=== PATIENT | female | born 1950 ===

== ENCOUNTER 2022-07-05 12:33 | Outpatient (CLI) | payer MEDICARE ==
--- NOTE | 2022-07-06 08:12 | Ultrasound Report ---
PROCEDURE: Carotid Doppler Complete INDICATIONS: CAROTID ARTERY OCCLUSION TECHNIQUE: Color and pulse Doppler interrogation was performed of both carotid systems, with image documentation and velocity measurements. COMPARISON: None. FINDINGS: Right side: Brachial blood pressure: 150/69 mm Hg. Common carotid artery peak systolic velocity: 65 cm/sec. Internal carotid artery peak systolic velocity: 78 cm/sec. Internal carotid artery end diastolic velocity: 27 cm/sec. External carotid artery peak systolic velocity: 80 cm/sec. ICA/CCA peak systolic ratio: 1.2 . Valenzuela scale imaging description: Minimal plaque Percent internal carotid artery stenosis: Less than 50% . Vertebral artery: Flow direction is antegrade. Left side: Brachial blood pressure: 147/70 mm Hg. Common carotid artery peak systolic velocity: 78 cm/sec. Internal carotid artery peak systolic velocity: 69 cm/sec. Internal carotid artery end diastolic velocity: 27 cm/sec. External carotid artery peak systolic velocity: 67 cm/sec. ICA/CCA peak systolic ratio: 0.9 . Valenzuela scale imaging description: Minimal plaque Percent internal carotid artery stenosis: Less than 50% . Vertebral artery: Flow direction is antegrade. IMPRESSION: Peak systolic velocities are consistent with less than 50% stenosis of the internal carotid arteries bilaterally. Reviewed by: Wil Plummer MD on 07/06/2022 8:11 AM PDT Approved by: Wil Plummer MD on 07/06/2022 8:11 AM PDT Station ID: [id number]
== END 2022-07-05 12:34 | disposition home or self-care (01) ==
LOC: DI 12:33
PROVIDERS: ATTEND Nurse Practitioner Family
DX: I65.23 Occlusion and stenosis of bilateral carotid arteries (principal)
CPT/HCPCS: 93880

== ENCOUNTER 2022-07-05 12:36 | Outpatient (CLI) | payer MEDICARE ==
--- NOTE | 2022-07-25 11:51 | Mammography Report ---
BILATERAL DIGITAL SCREENING MAMMOGRAM 3D/2D: 07/05/2022 CLINICAL: Routine screening. Additional films were requested but not obtained. Both breasts are heterogeneously dense, which may obscure small masses (category c / 51-75% glandula r tissue). No significant masses, calcifications, or other findings are seen in either breast. IMPRESSION: NEGATIVE There is no mammographic evidence of malignancy. A 1 year screening mammogram is recommended. Based on the Tyrer Cuzick model (a risk assessment model) the patients lifetime risk is 5.0% and her 10 year risk is 3.2%. According to the ACR, ACS, and NCCN guidelines, an annual breast MRI exam maria eugenia g with mammogram is recommended if the patients lifetime risk is 20% or greater. This exam was interpreted at Station ID: [id number]. NOTE: For mammograms, a report in lay terms will be sent to the patient. Approximately 15% of breast malignancies will not be visualized mammographically. In the management of a palpable breast mass, a negative mammogram must not discourage biopsy of a clinically suspicious lesion. Electronically Signed By: Wil bee/estrella:07/24/2022 10:04:52 ACR BI-RADS Category 1: Negative 3341F PARENCHYMAL PATTERN: (D) - The breast(s) demonstrate(s) heterogeneously dense fibroglandular yee chao. BI-RADS CATEGORY: (1) - 1 RECOMMENDATION: (ANNUAL) - Recommend routine annual screening mammography. [id number] 1 year screening LATERALITY: (B)
== END 2022-07-05 12:37 | disposition home or self-care (01) ==
LOC: DI 12:36
DX: Z12.31 Encounter for screening mammogram for malignant neoplasm of breast (principal)

== ENCOUNTER 2022-07-25 08:41 | Outpatient (CLI) | payer MEDICARE ==
--- NOTE | 2022-07-25 12:39 | Ultrasound Report ---
PROCEDURE: Head or Neck Soft Tissue INDICATIONS: ABD PAIN, INCOMPLETE BLADDER EMPTYING,THYROID NODULES TECHNIQUE: Real-time scanning was performed of the thyroid gland, with image documentation. COMPARISON: None FINDINGS: Right: Thyroid lobe measures 4.4 x 1.9 x 1.6 cm, and is homogeneous in echotexture. Left: Thyroid lobe measures 3.8 x 2.7 x 1.5 cm, and is homogenous in echotexture. Isthmus: 0.6 cm thick. Nodule number: Right #1 Location: Right mid thyroid Size: 1.1 x 0.9 x 1.1 cm. Composition: Predominantly solid Echogenicity: Hypoechoic Shape: wider than tall. Margins: Smooth Echogenic foci: None Total points: 4 ACR TI-RADS category: Moderately suspicious Two small peripherally calcified anechoic cysts (right #2 and right #3) are seen in the superior late ral thyroid measuring 6 mm and 4 mm in diameter respectively are not suspicious. Additional benign 1. 2 cm anechoic cyst is seen in the left thyroid (left #1). Nodule number: Isthmus Location: Isthmus Size: 0.7 x 0.7 x 0.6 cm. Composition: Solid Echogenicity: Hypoechoic Shape: wider than tall. Margins: Smooth Echogenic foci: None Total points: 4 ACR TI-RADS category: Moderately suspicious IMPRESSION: Multiple thyroid nodules and cysts as described in the body the report. Recommend follow -up of the right mid thyroid nodule based on guidelines provided below. ACR TI-RADS definitions and recommendations: TI-RADS 1 (benign): 0 points. FNA not needed. TI-RADS 2 (not suspicious): 2 points. FNA not needed. TI-RADS 3 (mildly suspicious): 3 points. "FNA if 2.5 cm or larger, follow up if 1.5 cm or larger (at 1, 3, and 5 years). TI-RADS 4 (moderately suspicious): 4-6 points. "FNA if 1.5 cm or larger, follow up if 1 cm or larger (at 1, 2, 3, and 5 years). TI-RADS 5 (highly suspicious): 7 points or more. "FNA if 1 cm or larger, follow up if 0.5 cm or larger (every year for 5 years). Reviewed by: Wil Garcia MD on 07/25/2022 12:38 PM PDT Approved by: Wil Garcia MD on 07/25/2022 12:38 PM PDT Station ID: [id number]
--- NOTE | 2022-07-25 15:44 | Ultrasound Report ---
PROCEDURE: Abdomen Complete INDICATIONS: ABD PAIN, INCOMPLETE BLADDER EMPTYING,THYROID NODU TECHNIQUE: Real-time scanning was performed of the abdominal and retroperitoneal organs, with image documentatio n. COMPARISON: None. FINDINGS: Liver: Liver length of 16.4 cm. Echogenic. Gallbladder: Surgically absent. Biliary ducts: Intrahepatic bile ducts are non-dilated. Extrahepatic bile duct caliber measures 7 m m. Normal is 6-7 mm or less in diameter, or 10 mm or less post-cholecystectomy. Pancreas: Visualized portions of the pancreas are sonographically normal. Spleen: Spleen is normal in size and homogeneous in echotexture. Kidneys: Kidneys are normal in size and echotexture. Right kidney measures 9.8 cm long; left kidney measures 11.0 cm long. No hydronephrosis or nephrolithiasis. Aorta: Visualized aorta is normal in caliber at less than 3 cm. Iliacs: Proximal common iliac arteries are normal in caliber at less than 2.5 cm. IVC: Intrahepatic inferior vena cava is patent. Miscellaneous: No free abdominal fluid. IMPRESSION: 1. Prior cholecystectomy. No biliary ductal dilation demonstrated. 2. The liver is echogenic, a nonspecific finding commonly seen in the setting of steatosis. 3. No hydronephrosis or evidence of nephrolithiasis. Reviewed by: Wil Plummer MD on 07/25/2022 3:43 PM PDT Approved by: Wil Plummer MD on 07/25/2022 3:43 PM PDT Station ID: [id number]
--- NOTE | 2022-07-26 09:30 | Ultrasound Report ---
PROCEDURE: Bladder INDICATIONS: ABD PAIN, INCOMPLETE BLADDER EMPTYING,THYROID NODU TECHNIQUE: Real-time scanning was performed of the bladder, with image documentation. COMPARISON: None FINDINGS: Bladder: Pre-void bladder volume is 37 mL. Post-void residual is zero mL. Pre-void images demonstr ate no intraluminal masses or stones. On pre-void images, the right ureteral jet is noted with color Doppler interrogation. (Of note, ureteral jets may not be detectable in up to 25% of cases due to i nsufficient differences in specific gravity between ureteral and bladder urine). Miscellaneous: No free pelvic fluid. IMPRESSION: Normal study. Reviewed by: Sid Rodríguez MD on 07/26/2022 9:29 AM PDT Approved by: iSd Rodríguez MD on 07/26/2022 9:29 AM PDT Station ID: [id number]
== END 2022-07-25 08:42 | disposition home or self-care (01) ==
LOC: DI 08:41
PROVIDERS: ATTEND Physician Assistant
DX: E04.1 Nontoxic single thyroid nodule (principal); R10.30 Lower abdominal pain, unspecified; R39.14 Feeling of incomplete bladder emptying; Z90.49 Acquired absence of other specified parts of digestive tract

== ENCOUNTER 2022-12-20 21:39 | Outpatient (CLI) | payer MEDICARE ==
--- NOTE | 2022-12-21 15:50 | Ultrasound Report ---
PROCEDURE: Pelvic w/Transvaginal INDICATIONS: PELVIC PAIN TECHNIQUE: Real-time scanning was performed of the pelvic organs, with image documentation. Additional endovagi nal scanning was necessary due to incomplete visualization of the adnexal and endometrial structures by transabdominal scanning. COMPARISON: None. FINDINGS: Uterus: Uterus has been removed. Ovaries: Ovaries have been removed. Adnexal regions are unremarkable. Other: No pathologic free abdominal or pelvic fluid. IMPRESSION: Hysterectomy with bilateral oophorectomy. Otherwise, unremarkable exam. Reviewed by: Susannah Baltazar MD on 12/21/2022 3:49 PM PST Approved by: Susannah Baltazar MD on 12/21/2022 3:49 PM PST Station ID: [id number]
--- NOTE | 2022-12-21 15:51 | Ultrasound Report ---
PROCEDURE: Bladder INDICATIONS: PELVIC PAIN TECHNIQUE: Real-time scanning was performed of the kidneys and bladder, with image documentation. COMPARISON: Pelvic ultrasound 12/20/2022 FINDINGS: Bladder: Pre-void bladder volume is 390 mL. Post-void residual is 12.7 mL. Pre-void images demonst rate no intraluminal masses or stones. On pre-void images, bilateral ureteral jets are noted with co satish Doppler interrogation. (Of note, ureteral jets may not be detectable in up to 25% of cases due t o insufficient differences in specific gravity between ureteral and bladder urine). Miscellaneous: No free pelvic fluid. IMPRESSION: Unremarkable exam. Reviewed by: Susannah Baltazar MD on 12/21/2022 3:50 PM PST Approved by: Susannah Baltazar MD on 12/21/2022 3:50 PM PST Station ID: [id number]
== END 2022-12-20 21:40 | disposition home or self-care (01) ==
LOC: DI 21:39
PROVIDERS: ATTEND Internal Medicine
DX: R10.2 Pelvic and perineal pain (principal); Z90.710 Acquired absence of both cervix and uterus; Z90.722 Acquired absence of ovaries, bilateral